=== PATIENT | female | born 1995 | race Caucasian/White ===

== ENCOUNTER 2017-11-08 12:41 | Inpatient (IN) | payer MEDICAID ==
[2017-11-08] MEDS ORDERED: CLINDAMYCIN 900 MG/D5W (PMX) 50 ML IVPB (12:57)
[2017-11-08] MEDS ORDERED: IBUPROFEN 600 MG TAB PO (13:00)
[2017-11-08] MEDS ORDERED: CARBOPROST 250 MCG INJ IM ×2 (13:00→18:00)
[2017-11-08] MEDS ORDERED: OXYTOCIN 30 UNITS/LR 500 ML IV ×2 (13:00→18:00)
[2017-11-08] MEDS ORDERED: MISOPROSTOL 200 MCG TAB PR ×2 (13:00→18:00)
[2017-11-08] MEDS ORDERED: LIDOCAINE 1% (MPF) 30 ML INJ INJ (13:00)
[2017-11-08] MEDS ORDERED: BUTORPHANOL 2 MG INJ IV (13:00)
[2017-11-08] MEDS ORDERED: METHYLERGONOVINE 0.2 MG INJ IM ×2 (13:00→18:00)
[2017-11-08] MEDS: LACTATED RINGER'S 1,000 ML IV (13:05)
[2017-11-08] MEDS: CLINDAMYCIN 900 MG/D5W (PMX) 50 ML IV (13:06)
[2017-11-08 13:49] LABS: ADD MAN DIFF? NO
[2017-11-08 13:52] LABS: BASOPHIL # 0.1 10^3/ul (0.0-0.1); BASOPHILS % 0.3 % (0.0-2.0); EOSINOPHILS % 0.3 % (0.0-7.0); HEMATOCRIT 36.1 % (37.0-47.0); HEMOGLOBIN 11.9 g/dl (12.0-16.0); LYMPHOCYTES # 1.5 10^3/ul (0.8-2.9); LYMPHOCYTES % 10.6 % (18.0-55.0); MEAN CORPUSCULAR HEMOGLOBIN 27.3 pg (29.0-33.0); MEAN CORPUSCULAR VOLUME 82.8 fl (72.0-104.0); MEAN PLATELET VOLUME 9.9 fl (7.4-10.4); MONOCYTE # 0.7 10^3/ul (0.3-0.9); MONOCYTES % 4.8 % (0.0-13.0); NEUTROPHIL # 11.8 10^3/ul (1.6-7.5); NEUTROPHILS % 82.6 % (30.0-74.0); PLATELET COUNT 305 10^3/UL (140-415); RED BLOOD COUNT 4.36 10^6/ul (4.20-5.40); RED CELL DISTRIBUTION WIDTH 13.9 % (11.5-14.5)
[2017-11-08 13:52] LABS: WHITE BLOOD COUNT 14.3 10^3/ul (4.8-10.8)
[2017-11-08] MEDS: OXYTOCIN 30 UNITS/LR 500 ML IV ×2 (13:56→15:38)
[2017-11-08 14:13] LABS: INR 0.89; PROTIME 12.1 Sec (11.9-14.9); PT RATIO 0.9
[2017-11-08 14:14] LABS: PARTIAL THROMBOPLASTIN TIME 27.6 Sec (25.0-35.0)
[2017-11-08 14:43] LABS: HEPATITIS B SURFACE ANTIGEN NEGATIVE (NEGATIVE)
[2017-11-08 14:53] LABS: HIV 1&2 ANTIBODY NEGATIVE (NEGATIVE)
[2017-11-08 15:04] LABS: RAPID PLASMA REAGIN NONREACTIVE (NR)
[2017-11-08 16:28] LABS: ADD UMIC NO; UR ASCORBIC ACID NEGATIVE (NEGATIVE); UR BILIRUBIN (Dip) NEGATIVE (NEGATIVE); UR BLOOD (Dip) NEGATIVE (NEGATIVE); UR CLARITY CLEAR (CLEAR); UR COLOR YELLOW (YELLOW); UR GLUCOSE (Dip) NEGATIVE (NEGATIVE); UR KETONES (Dip) NEGATIVE (NEGATIVE); UR LEUKOCYTE ESTERASE (Dip) NEGATIVE Leu/ul (NEGATIVE); UR NITRITE (Dip) NEGATIVE (NEGATIVE); UR SPECIFIC GRAVITY (Dip) 1.015 (1.003-1.030); UR TOTAL PROTEIN (Dip) NEGATIVE (NEGATIVE); UR UROBILINOGEN (Dip) NEGATIVE (NEGATIVE)
[2017-11-08 16:51] LABS: AMPHETAMINE/METHAMPHETAMINE Negative (NEGATIVE); BARBITURATES Negative (NEGATIVE); BENZODIAZEPINES Negative (NEGATIVE); CANNABINOIDS Negative (NEGATIVE); COCAINE Negative (NEGATIVE); OPIATES Negative (NEGATIVE)
[2017-11-08] MEDS ORDERED: ZOLPIDEM 5 MG TAB PO (18:00)
[2017-11-08] MEDS ORDERED: OXYCODONE/ASPIRIN (4.88/325) TAB PO ×2 (18:00)
[2017-11-08] MEDS ORDERED: LANOLIN 7 GM TUBE TOP (18:00)
[2017-11-08] MEDS: IBUPROFEN 600 MG TAB PO ×2 (18:23→23:26)
[2017-11-08] MEDS: WITCH HAZEL/GLYCERIN PAD PR (18:24)
[2017-11-08] MEDS: BENZOCAINE 20% 56 ML SPRAY TOP (18:24)
[2017-11-08] MEDS: SENNA/DOCUSATE NA (8.6MG/50MG) TAB PO (21:11)
[2017-11-09] MEDS: IBUPROFEN 600 MG TAB PO ×3 (05:40→17:14)
[2017-11-09] MEDS: SENNA/DOCUSATE NA (8.6MG/50MG) TAB PO ×2 (08:31→21:00)
[2017-11-09 09:10] LABS: ADD MAN DIFF? NO
[2017-11-09 09:16] LABS: BASOPHILS % 0.1 % (0.0-2.0); EOSINOPHILS # 0.1 10^3/ul (0.0-0.5); EOSINOPHILS % 0.8 % (0.0-7.0); HEMATOCRIT 32.7 % (37.0-47.0); HEMOGLOBIN 10.4 g/dl (12.0-16.0); LYMPHOCYTES # 2.4 10^3/ul (0.8-2.9); LYMPHOCYTES % 17.6 % (18.0-55.0); MEAN CORPUSCULAR HEMOGLOBIN 26.7 pg (29.0-33.0); MEAN CORPUSCULAR HGB CONC 31.8 g/dl (32.0-37.0); MEAN CORPUSCULAR VOLUME 83.8 fl (72.0-104.0); MONOCYTE # 0.9 10^3/ul (0.3-0.9); MONOCYTES % 6.7 % (0.0-13.0); NEUTROPHIL # 9.8 10^3/ul (1.6-7.5); NEUTROPHILS % 73.1 % (30.0-74.0); PLATELET COUNT 274 10^3/UL (140-415); RED CELL DISTRIBUTION WIDTH 14.6 % (11.5-14.5)
[2017-11-09 09:16] LABS: WHITE BLOOD COUNT 13.4 10^3/ul (4.8-10.8)
[2017-11-10] MEDS: IBUPROFEN 600 MG TAB PO ×4 (00:50→18:38)
[2017-11-10] MEDS: SENNA/DOCUSATE NA (8.6MG/50MG) TAB PO (09:01)
[2017-11-10] MEDS: DIPHTH/TET/ACEL PERTUSS (ADULT) 0.5 ML VIAL IM* (15:05)
[2017-11-12 12:58] LABS: RUBELLA ANTIBODY - IGM <20.00 AU/mL
[2017-11-12 13:41] LABS: RUBELLA ANTIBODY - IGG 1.36 index
== END 2017-11-10 19:18 | disposition home or self-care (01) | DRG 775 ==
LOC: OBT 12:41 → L-D 12:47 → PP1 17:20
PROVIDERS: Obstetrics & Gynecology
PROC: 10E0XZZ Delivery of Products of Conception, External Approach (ICD-10-PCS; principal; 2017-11-08)
DX: O80 Encounter for full-term uncomplicated delivery (principal); Z3A.39 39 weeks gestation of pregnancy; Z37.0 Single live birth
CPT/HCPCS: 80307; 81003; 85025; 85610; 85730; 86592; 86703; 86762; 86850; 86900; 86901; 87340; 88307; 90715